=== PATIENT | female | born 1940 | race Caucasian/White ===

== ENCOUNTER 2021-11-20 14:49 | Inpatient (IN) | payer MEDICARE ==
[~2021-11-20] VITALS: Ht 149.9 cm; Wt 83.9 kg
--- NOTE | 2021-11-20 22:30 | NUR ---
Received a 81 yr old female from [facility] with admitting diagnosis of S/P L1-S1 decompression with L3-L5 fusion on 11/17/[address] Sanders. AAOx3-4 but forgetful at times. Needs attended. VSS No acute distress noted. Fall precautions maintained. Hx of Sciatica, HTN, DM, Hysterectomy, Rheumatoid arthritis, Bilateral total knee arthroplasty. Lungs CTA. Dr Yan aware of patient's admission and meds to reconcile. Patient denies any pain nor any discomfort. Incontinent of bowel and bladder. No BM noted this shift. Patient put on purewick to SD. Will monitor patient. Skin intact. Lower back incision intact, with dressing applied.
[2021-11-20] MEDS ORDERED: REMEDY ESSENTIAL ZINC PASTE 113 GM TOP PRN (22:45)
[2021-11-20 23:30] VITALS: BP 172/50
[2021-11-20] MEDS ORDERED: METH2.5T PO (23:31)
[2021-11-20] MEDS ORDERED: BUPR150T10 PO (23:31)
[2021-11-20] MEDS ORDERED: CIPR-262 PO (23:31)
[2021-11-20] MEDS ORDERED: GLIP5TAB13 PO (23:31)
[2021-11-20] MEDS ORDERED: TEMA30CA PO (23:31)
[2021-11-20] MEDS ORDERED: ALPR0.25 PO (23:31)
[2021-11-20] MEDS ORDERED: LOSA100T31 PO (23:31)
[2021-11-20] MEDS ORDERED: AMLO-212 PO (23:31)
[2021-11-20] MEDS ORDERED: ESCI20TA44 PO (23:31)
[2021-11-20] MEDS ORDERED: METO50TA16 PO (23:31)
[2021-11-20] MEDS ORDERED: CYCL5TAB PO (23:31)
[2021-11-20] MEDS ORDERED: ONDA4TAB11 PO (23:31)
[2021-11-20] MEDS ORDERED: INSU3INS6 SQ (23:31)
[2021-11-20] MEDS ORDERED: FOLI1TAB2 PO (23:31)
[2021-11-20] MEDS ORDERED: FOLI1TAB94 PO (23:31)
[2021-11-20] MEDS ORDERED: PANT40TA49 PO (23:31)
[2021-11-20] MEDS ORDERED: ARIP5TAB59 PO (23:31)
[2021-11-20] MEDS ORDERED: ACET-2154 PO (23:31)
[2021-11-20] MEDS ORDERED: HYDR-4209 PO (23:31)
[2021-11-20] MEDS ORDERED: ESTR0.5T PO (23:31)
[2021-11-20] MEDS ORDERED: ESTR-31 PO (23:31)
[2021-11-20] MEDS ORDERED: ALPR0.255 PO (23:31)
[2021-11-21 04:00] VITALS: BP 119/46
[2021-11-21] MEDS ORDERED: DEXTROSE 50% 50 ML DISP.SYRIN IV PRN (07:45)
[2021-11-21 07:54] VITALS: BP 133/47
[2021-11-21] MEDS ORDERED: ONDANSETRON ODT 4 MG TAB.RAPDIS SL PRN (08:15)
[2021-11-21] MEDS ORDERED: ACETAMINOPHEN 325 MG TABLET PO PRN (08:15)
[2021-11-21] MEDS: BLOOD SUGAR DIAGNOSTIC 1 EACH STRIP VI SCH ×4 (08:17→21:03)
[2021-11-21] MEDS: HYDROCODONE/APAP 5-325MG TABLET PO PRN ×2 (08:44→16:11)
[2021-11-21] MEDS: FOLIC ACID 1 MG TABLET PO SCH (08:44)
[2021-11-21] MEDS: ARIPIPRAZOLE 5 MG TABLET PO SCH (08:45)
[2021-11-21] MEDS: MULTIVITAMINS,THERAPEUTIC TABLET PO SCH (08:46)
[2021-11-21] MEDS: LOSARTAN POTASSIUM 50 MG TABLET PO SCH (08:46)
[2021-11-21] MEDS: CYCLOBENZAPRINE HCL 10 MG TABLET PO PRN (08:46)
[2021-11-21] MEDS: ESCITALOPRAM OXALATE 10 MG TABLET PO SCH (08:47)
[2021-11-21] MEDS: METOPROLOL TARTRATE 50 MG TABLET PO SCH ×2 (08:47→16:17)
[2021-11-21] MEDS ORDERED: glipiZIDE 5 MG TABLET PO SCH (09:00)
[2021-11-21] MEDS ORDERED: AMLODIPINE 5 MG TABLET PO SCH (09:00)
[2021-11-21] MEDS ORDERED: buPROPion SR 150 MG TABLET.SA PO SCH (09:00)
--- NOTE | 2021-11-21 09:01 | NUR ---
patient is alert, oriented x4, no sob, resp even nonlabored, skin warm and dry to touch, refused morning insulin, patient stated she would take it at lunch time, risks and benefits explained, patient verbalized understanding of it, ambulated with PT. pain is managed with pain medications. no distress noted at this time. Addendum: 11/22/21 at 0555 by ALLIE MARX RN, RN asked patient when she takes methotrexate, [facility] weak dose already, she does not want to take it until next Tuesday, pharmacy made aware Addendum: 11/24/21 at 0777 by ALLIE MARX RN, RN offered patient laxative patient refused and stated she makes BM herself, risks and benefits explained, patient verbalized understanding of it
[2021-11-21] MEDS: CIPROFLOXACIN HCL 250 MG TABLET PO SCH ×2 (09:11→16:12)
[2021-11-21] MEDS: ESTRADIOL 1 MG TABLET PO SCH (09:11)
[2021-11-21] MEDS: INSULIN REGULAR, HUMAN 300 UNIT/3 ML VIAL SQ PRN ×3 (11:59→21:00)
[2021-11-21] MEDS ORDERED: GLIP5TAB26 PO (12:32)
[2021-11-21] MEDS ORDERED: BUPR-53 PO (12:32)
[2021-11-21] MEDS ORDERED: INSU100V7 SQ (15:09)
[2021-11-21] MEDS ORDERED: ALPR0.255 PO (15:10)
[2021-11-21] MEDS ORDERED: TRAZ-257 PO (15:13)
[2021-11-21] MEDS ORDERED: TRAM50TA2 PO (15:13)
[2021-11-21] MEDS: glipiZIDE XL 5 MG TABCR PO SCH (16:11)
[2021-11-21 16:53] VITALS: BP 127/49
[2021-11-21] MEDS ORDERED: METHOTREXATE SODIUM 2.5 MG TABLET PO SCH (17:00)
[2021-11-21 20:15] VITALS: BP 115/45
[2021-11-21] MEDS: INSULIN GLARGINE,HUM 300 UNITS/3 ML CARTRIDGE SQ SCH (21:02)
[2021-11-22 04:00] VITALS: BP 135/32
--- NOTE | 2021-11-22 04:58 | NUR ---
Quiet night. VSS Slept well most of the shift. Needs attended. All meds given without difficulty. Continent of bowel and bladder. Will monitor.
[2021-11-22] MEDS ORDERED: ALPRAZOLAM 0.25 MG TABLET PO PRN (06:00)
[2021-11-22] MEDS: BLOOD SUGAR DIAGNOSTIC 1 EACH STRIP VI SCH ×4 (06:32→21:00)
[2021-11-22] MEDS: PANTOPRAZOLE SODIUM 40 MG TABLET.DR PO SCH (06:34)
[2021-11-22 08:01] VITALS: BP 119/65
[2021-11-22] MEDS: HYDROCODONE/APAP 5-325MG TABLET PO PRN ×3 (08:55→21:52)
[2021-11-22] MEDS ORDERED: DUAVEE PO SCH (09:00)
[2021-11-22] MEDS ORDERED: [UNRECOGNIZED DRUG - OTHER] PO SCH (09:00)
[2021-11-22] MEDS: glipiZIDE XL 5 MG TABCR PO SCH ×2 (09:09→16:23)
[2021-11-22] MEDS: ARIPIPRAZOLE 5 MG TABLET PO SCH (09:09)
[2021-11-22] MEDS: CIPROFLOXACIN HCL 250 MG TABLET PO SCH ×2 (09:09→16:23)
[2021-11-22] MEDS: ESTRADIOL 1 MG TABLET PO SCH (09:09)
[2021-11-22] MEDS: LOSARTAN POTASSIUM 50 MG TABLET PO SCH (09:10)
[2021-11-22] MEDS: CYCLOBENZAPRINE HCL 10 MG TABLET PO PRN (09:10)
[2021-11-22] MEDS: FOLIC ACID 1 MG TABLET PO SCH (09:11)
[2021-11-22] MEDS: ESCITALOPRAM OXALATE 10 MG TABLET PO SCH (09:12)
[2021-11-22] MEDS: MULTIVITAMINS,THERAPEUTIC TABLET PO SCH (09:13)
[2021-11-22] MEDS: METOPROLOL TARTRATE 50 MG TABLET PO SCH ×2 (09:14→16:23)
[2021-11-22] MEDS: buPROPion XL 150 MG TAB.SR.24H PO SCH (09:16)
[2021-11-22 16:03] VITALS: BP 138/42
--- NOTE | 2021-11-22 16:17 | NUR ---
BS 188 REFUSES SLIDING SCALE COVERAGE
[2021-11-22 20:00] VITALS: BP 135/63
[2021-11-22] MEDS: INSULIN GLARGINE,HUM 300 UNITS/3 ML CARTRIDGE SQ SCH (21:00)
[2021-11-22] MEDS: TEMAZEPAM 15 MG CAPSULE PO PRN (21:54)
[2021-11-22] MEDS: INSULIN REGULAR, HUMAN 300 UNIT/3 ML VIAL SQ PRN (23:25)
[2021-11-23] VITALS: BP 128/72
[2021-11-23 05:15] VITALS: BP 138/48
[2021-11-23] MEDS: PANTOPRAZOLE SODIUM 40 MG TABLET.DR PO SCH (05:58)
[2021-11-23] MEDS: BLOOD SUGAR DIAGNOSTIC 1 EACH STRIP VI SCH ×4 (06:13→20:39)
[2021-11-23 06:49] LABS: HEMATOCRIT 30.5 % (31.2-41.9); MEAN CORPUSCULAR HEMOGLOBIN 30.5 uug (24.7-32.8); PLATELET COUNT (AUTO) 268 K/uL (179-408)
--- NOTE | 2021-11-23 06:56 | NUR ---
SHIFT NOTE; RECEIVED PT ALERT AND ORIENTED X 4 PT DENIES PAIN AT START OF SHIFT AFTERWARDS AT 0344 GAVE PT ONE NORCO FOR PAIN. PT. REASSESSED AFTER WAS ASLEEP. PT POSTERIOR DRESSING CHANGED HAS DRAINAGE. PT AM BLOOD SUGAR 104 NO SIGNS OF DRAINAGE NOTED WILL CONTINUE TO MONITOR FOR SAFETY AND FALLS.
[2021-11-23 07:05] LABS: BILIRUBIN,TOTAL 0.7 mg/dL (0.2-1.0); CREATININE 1.3 mg/dL (0.6-1.3); POTASSIUM 4.1 mmol/L (3.5-5.1); TOTAL PROTEIN, SERUM 5.6 g/dL (6.4-8.2)
[2021-11-23] MEDS: HYDROCODONE/APAP 5-325MG TABLET PO PRN ×2 (08:24→17:18)
[2021-11-23] MEDS: CYCLOBENZAPRINE HCL 10 MG TABLET PO PRN (08:40)
[2021-11-23] MEDS: ESCITALOPRAM OXALATE 10 MG TABLET PO SCH (08:40)
[2021-11-23] MEDS: buPROPion XL 150 MG TAB.SR.24H PO SCH (08:40)
[2021-11-23] MEDS: MULTIVITAMINS,THERAPEUTIC TABLET PO SCH (08:40)
[2021-11-23] MEDS: ARIPIPRAZOLE 5 MG TABLET PO SCH (08:40)
[2021-11-23] MEDS: FOLIC ACID 1 MG TABLET PO SCH (08:40)
[2021-11-23] MEDS: LOSARTAN POTASSIUM 50 MG TABLET PO SCH (08:41)
[2021-11-23] MEDS: METOPROLOL TARTRATE 50 MG TABLET PO SCH ×2 (08:41→17:18)
[2021-11-23] MEDS: CIPROFLOXACIN HCL 250 MG TABLET PO SCH ×2 (08:43→17:18)
[2021-11-23] MEDS: glipiZIDE XL 5 MG TABCR PO SCH ×2 (08:43→17:19)
[2021-11-23 08:48] VITALS: BP 134/47
[2021-11-23] MEDS: ESTRADIOL 1 MG TABLET PO SCH (09:05)
--- NOTE | 2021-11-23 11:08 | NUR ---
patient refused sliding scale insulin, risks and benefits explained, patient verbalized understanding of it, and still refused.
[2021-11-23] MEDS: PROTEIN SUPPLEMENT (PROSTAT) 30 ML LIQUID PO SCH (15:20)
--- NOTE | 2021-11-23 15:52 | NUR ---
INDIVIDUALIZED PLAN OF CARE
[2021-11-23 16:15] VITALS: BP 143/45
[2021-11-23] MEDS: GLUCERNA SHAKE 237 ML CAN PO SCH (17:19)
[2021-11-23 20:00] VITALS: BP 138/38
[2021-11-23] MEDS: TRAZODONE 100 MG TABLET PO SCH (20:32)
[2021-11-23] MEDS: INSULIN GLARGINE,HUM 300 UNITS/3 ML CARTRIDGE SQ SCH (20:39)
[2021-11-23] MEDS: INSULIN REGULAR, HUMAN 300 UNIT/3 ML VIAL SQ PRN (20:40)
[2021-11-23] MEDS: MIRALAX 17 GM POWD.PACK PO SCH (21:12)
--- NOTE | 2021-11-23 22:27 | NUR ---
back incision site assessed, noted with mild to moderate serous drainage, no malodorous noted, dressing changed, continue to monitor
[2021-11-24 00:13] LABS: *BILIRUBIN,URIN NEGATIVE (NEGATIVE); *BLOOD, URINE 1+ (NEGATIVE); *CLARITY,URINE CLEAR (CLEAR); *COLOR,URINE YELLOW (YELLOW); *KETONES,URINE NEGATIVE (NEGATIVE); *UROBILINOGEN,URINE 0.2 E.U./dl (NORMAL); LEUKOCYTE ESTERASE ,URINE 3+ (NEGATIVE); NITRITE, URINE NEGATIVE (NEGATIVE); PH,URINE 5.5 (5.0-8.0); UGLUCOSE NEGATIVE (NEGATIVE)
[2021-11-24 00:15] LABS: BACTERIA,URINE FEW /HPF (NONE SEEN); RBC,URINE 0-3 /HPF (0-3); SQUAMOUS EPITHELIAL CELL,UR FEW /HPF (NONE SEEN); WBC,URINE TNTC /HPF (0-3)
[2021-11-24] MEDS: HYDROCODONE/APAP 5-325MG TABLET PO PRN ×4 (00:30→17:06)
[2021-11-24 04:00] VITALS: BP 119/34
[2021-11-24] MEDS: PANTOPRAZOLE SODIUM 40 MG TABLET.DR PO SCH (06:33)
[2021-11-24] MEDS: BLOOD SUGAR DIAGNOSTIC 1 EACH STRIP VI SCH ×4 (06:34→20:32)
--- NOTE | 2021-11-24 06:41 | NUR ---
no events noted overnight, slept well
--- NOTE | 2021-11-24 08:00 | NUR ---
resting in bed, states pain better, back dsg in place, noted pinkish drainage on dsg on the distal end, readied for breakfast, safety measures maintained
[2021-11-24] MEDS: LOSARTAN POTASSIUM 50 MG TABLET PO SCH (09:00)
[2021-11-24] MEDS: CYCLOBENZAPRINE HCL 10 MG TABLET PO PRN (09:15)
[2021-11-24] MEDS: ESCITALOPRAM OXALATE 10 MG TABLET PO SCH (09:15)
[2021-11-24] MEDS: buPROPion XL 150 MG TAB.SR.24H PO SCH (09:16)
[2021-11-24] MEDS: GLUCERNA SHAKE 237 ML CAN PO SCH ×2 (09:17→17:07)
[2021-11-24] MEDS: FOLIC ACID 1 MG TABLET PO SCH (09:17)
[2021-11-24] MEDS: ARIPIPRAZOLE 5 MG TABLET PO SCH (09:17)
[2021-11-24] MEDS: PROTEIN SUPPLEMENT (PROSTAT) 30 ML LIQUID PO SCH (09:17)
[2021-11-24] MEDS: MIRALAX 17 GM POWD.PACK PO SCH (09:18)
[2021-11-24] MEDS: MULTIVITAMINS,THERAPEUTIC TABLET PO SCH (09:18)
[2021-11-24] MEDS: ESTRADIOL 1 MG TABLET PO SCH (09:22)
[2021-11-24] MEDS: CIPROFLOXACIN HCL 250 MG TABLET PO SCH ×2 (09:22→17:05)
[2021-11-24] MEDS: METHOTREXATE SODIUM 2.5 MG TABLET PO SCH (09:22)
[2021-11-24] MEDS: glipiZIDE XL 5 MG TABCR PO SCH ×2 (09:23→17:06)
[2021-11-24] MEDS: METOPROLOL TARTRATE 50 MG TABLET PO SCH ×2 (09:24→17:00)
[2021-11-24 10:55] VITALS: BP 127/34
[2021-11-24] MEDS: INSULIN REGULAR, HUMAN 300 UNIT/3 ML VIAL SQ PRN ×2 (12:08→20:31)
--- NOTE | 2021-11-24 12:33 | NUR ---
WOUND CARE CONSULT: PT PRESENTS WITH DRY/INTACT BACK DRESSING WITH SLIGHT PINK SHADOW NOTED. RECOMMEND SURGICAL FOLLOW UP. DISCUSSED WITH NURSING STAFF. PT IS INDEPENDENT WITH BED MOBILITY AND IS CONTINENT. WILL SEE PRN.
[2021-11-24 16:05] VITALS: BP 124/29
--- NOTE | 2021-11-24 18:08 | NUR ---
no distress noted, medicated with [place] x 2 for pain back pain this shift with relief, voiding qs to BR with back brace, back dressing changed this shift, some serosanguineous drainage noted on old dsg, has appt for Dr Tommy jeffers at 1300-pt informed, all needs attended and met, call light within reach
--- NOTE | 2021-11-24 19:00 | NUR ---
reported UA results to Dr Quezada- no orders given, pt is on Cipro 500mg bid since the tenth
[2021-11-24 20:00] VITALS: BP 130/43
[2021-11-24] MEDS: TRAZODONE 100 MG TABLET PO SCH (20:23)
[2021-11-24] MEDS: INSULIN GLARGINE,HUM 300 UNITS/3 ML CARTRIDGE SQ SCH (20:31)
[2021-11-24] MEDS: TEMAZEPAM 15 MG CAPSULE PO PRN (22:11)
[2021-11-25 04:00] VITALS: BP 129/48
--- NOTE | 2021-11-25 04:36 | NUR ---
Quiet night. AAOx3-4 forgetful at times. VSS Needs attended. Fall precautions maintained. Lower back incision with lucero intact dressing applied has some leakage noted. Will monitor patient. Patient has appointment today with Dr Sanders. Denies any pain nor any discomfort.
[2021-11-25] MEDS: PANTOPRAZOLE SODIUM 40 MG TABLET.DR PO SCH (06:30)
[2021-11-25] MEDS: BLOOD SUGAR DIAGNOSTIC 1 EACH STRIP VI SCH ×4 (06:31→20:56)
[2021-11-25] MEDS: HYDROCODONE/APAP 5-325MG TABLET PO PRN ×3 (07:57→20:49)
--- NOTE | 2021-11-25 08:00 | NUR ---
awake alert and oriented, medicated for back pain , back dsg dry and intact, PT after breakfast, safety measures maintained, call light within reach, forgetful at times
[2021-11-25 08:04] VITALS: BP 117/49
[2021-11-25] MEDS: GLUCERNA SHAKE 237 ML CAN PO SCH ×2 (08:16→17:14)
[2021-11-25] MEDS: PROTEIN SUPPLEMENT (PROSTAT) 30 ML LIQUID PO SCH (08:17)
[2021-11-25] MEDS: buPROPion XL 150 MG TAB.SR.24H PO SCH (08:18)
[2021-11-25] MEDS: CIPROFLOXACIN HCL 250 MG TABLET PO SCH ×2 (08:19→17:14)
[2021-11-25] MEDS: METOPROLOL TARTRATE 50 MG TABLET PO SCH ×2 (08:19→17:00)
[2021-11-25] MEDS: MULTIVITAMINS,THERAPEUTIC TABLET PO SCH (08:19)
[2021-11-25] MEDS: FOLIC ACID 1 MG TABLET PO SCH (08:19)
[2021-11-25] MEDS: ESCITALOPRAM OXALATE 10 MG TABLET PO SCH (08:19)
[2021-11-25] MEDS: LOSARTAN POTASSIUM 50 MG TABLET PO SCH (08:20)
[2021-11-25] MEDS: ESTRADIOL 1 MG TABLET PO SCH (08:20)
[2021-11-25] MEDS: glipiZIDE XL 5 MG TABCR PO SCH ×2 (08:20→17:14)
[2021-11-25] MEDS: MIRALAX 17 GM POWD.PACK PO SCH (08:21)
[2021-11-25] MEDS: ARIPIPRAZOLE 5 MG TABLET PO SCH (08:31)
[2021-11-25] MEDS: INSULIN REGULAR, HUMAN 300 UNIT/3 ML VIAL SQ PRN ×3 (12:10→20:59)
--- NOTE | 2021-11-25 12:50 | NUR ---
taken per julius in stable condition for appointment with Dr Sanders
--- NOTE | 2021-11-25 13:00 | NUR ---
INTERDISCIPLINARY TEAM CONFERENCE
--- NOTE | 2021-11-25 14:00 | NUR ---
back from Dr Sanders's clinic, pt in stable condition, female visitor at bedside
[2021-11-25] MEDS: CYCLOBENZAPRINE HCL 10 MG TABLET PO PRN (14:51)
--- NOTE | 2021-11-25 14:58 | NUR ---
medicated with flexeril 10mg po as ordered prn for muscle spasm
[2021-11-25 15:45] VITALS: BP 134/49
--- NOTE | 2021-11-25 18:13 | NUR ---
resting in bed, no distress noted, all needs attended and met, safety measures in place
[2021-11-25 20:00] VITALS: BP 120/47
--- NOTE | 2021-11-25 20:00 | NUR ---
Patient received in bed, AAOX3, no sob, no c/o pain noted, call light wit in easy reach,
[2021-11-25] MEDS: TRAZODONE 100 MG TABLET PO SCH (20:26)
[2021-11-25] MEDS: TEMAZEPAM 15 MG CAPSULE PO PRN (20:27)
[2021-11-25] MEDS: INSULIN GLARGINE,HUM 300 UNITS/3 ML CARTRIDGE SQ SCH (21:01)
--- NOTE | 2021-11-26 01:00 | NUR ---
Pt with a visitor at bedside having lunch. Asked for pain med before PT.
[2021-11-26] MEDS: HYDROCODONE/APAP 5-325MG TABLET PO PRN ×3 (03:56→14:41)
[2021-11-26] MEDS: PANTOPRAZOLE SODIUM 40 MG TABLET.DR PO SCH (06:30)
[2021-11-26] MEDS: INSULIN REGULAR, HUMAN 300 UNIT/3 ML VIAL SQ PRN ×3 (06:34→16:50)
[2021-11-26] MEDS: BLOOD SUGAR DIAGNOSTIC 1 EACH STRIP VI SCH ×4 (06:34→20:11)
[2021-11-26 07:38] VITALS: BP 114/45
[2021-11-26] MEDS: MIRALAX 17 GM POWD.PACK PO SCH (08:28)
[2021-11-26] MEDS: ESTRADIOL 1 MG TABLET PO SCH (08:28)
[2021-11-26] MEDS: glipiZIDE XL 5 MG TABCR PO SCH ×2 (08:29→16:41)
[2021-11-26] MEDS: FOLIC ACID 1 MG TABLET PO SCH (08:29)
[2021-11-26] MEDS: buPROPion XL 150 MG TAB.SR.24H PO SCH (08:29)
[2021-11-26] MEDS: CIPROFLOXACIN HCL 250 MG TABLET PO SCH (08:29)
[2021-11-26] MEDS: ESCITALOPRAM OXALATE 10 MG TABLET PO SCH (08:29)
[2021-11-26] MEDS: MULTIVITAMINS,THERAPEUTIC TABLET PO SCH (08:29)
[2021-11-26] MEDS: ARIPIPRAZOLE 5 MG TABLET PO SCH (08:29)
[2021-11-26] MEDS: CYCLOBENZAPRINE HCL 10 MG TABLET PO PRN (08:29)
[2021-11-26] MEDS: METOPROLOL TARTRATE 50 MG TABLET PO SCH ×2 (08:37→16:49)
[2021-11-26] MEDS: LOSARTAN POTASSIUM 50 MG TABLET PO SCH (08:37)
[2021-11-26] MEDS: PROTEIN SUPPLEMENT (PROSTAT) 30 ML LIQUID PO SCH (08:38)
[2021-11-26] MEDS: GLUCERNA SHAKE 237 ML CAN PO SCH ×2 (08:38→17:29)
[2021-11-26 15:20] VITALS: BP 155/58
--- NOTE | 2021-11-26 16:20 | NUR ---
Patient resting in bed with at bedside, verbalized no pain. No distress noted.
[2021-11-26 20:04] VITALS: BP 103/32
[2021-11-26] MEDS: INSULIN GLARGINE,HUM 300 UNITS/3 ML CARTRIDGE SQ SCH (20:15)
[2021-11-26] MEDS: TRAZODONE 100 MG TABLET PO SCH (20:43)
[2021-11-26] MEDS: TEMAZEPAM 15 MG CAPSULE PO PRN (20:43)
--- NOTE | 2021-11-26 21:13 | NUR ---
Patient in bed at this time, awake, AAOX3, no sob, no c/o pain noted,
[2021-11-27] MEDS: INSULIN REGULAR, HUMAN 300 UNIT/3 ML VIAL SQ PRN ×3 (02:58→21:32)
[2021-11-27 04:19] VITALS: BP 142/43
[2021-11-27] MEDS: PANTOPRAZOLE SODIUM 40 MG TABLET.DR PO SCH (06:33)
[2021-11-27] MEDS: BLOOD SUGAR DIAGNOSTIC 1 EACH STRIP VI SCH ×4 (06:33→21:24)
[2021-11-27 07:25] VITALS: BP 126/48
[2021-11-27] MEDS: GLUCERNA SHAKE 237 ML CAN PO SCH ×2 (08:00→17:05)
[2021-11-27] MEDS: LOSARTAN POTASSIUM 50 MG TABLET PO SCH (09:00)
[2021-11-27] MEDS: glipiZIDE XL 5 MG TABCR PO SCH ×2 (09:40→17:08)
[2021-11-27] MEDS: MULTIVITAMINS,THERAPEUTIC TABLET PO SCH (09:40)
[2021-11-27] MEDS: MIRALAX 17 GM POWD.PACK PO SCH (09:40)
[2021-11-27] MEDS: FOLIC ACID 1 MG TABLET PO SCH (09:41)
[2021-11-27] MEDS: ARIPIPRAZOLE 5 MG TABLET PO SCH (09:41)
[2021-11-27] MEDS: ESTRADIOL 1 MG TABLET PO SCH (09:41)
[2021-11-27] MEDS: ESCITALOPRAM OXALATE 10 MG TABLET PO SCH (09:41)
[2021-11-27] MEDS: CYCLOBENZAPRINE HCL 10 MG TABLET PO PRN ×2 (09:41→16:58)
[2021-11-27] MEDS: PROTEIN SUPPLEMENT (PROSTAT) 30 ML LIQUID PO SCH (09:47)
[2021-11-27] MEDS: buPROPion XL 150 MG TAB.SR.24H PO SCH (09:52)
[2021-11-27] MEDS: HYDROCODONE/APAP 5-325MG TABLET PO PRN ×2 (09:53→16:58)
[2021-11-27] MEDS: METOPROLOL TARTRATE 50 MG TABLET PO SCH ×2 (10:26→17:04)
[2021-11-27 15:06] VITALS: BP 138/45
--- NOTE | 2021-11-27 15:41 | NUR ---
Pt in bed awake. She is alert and oriented x3-4. She did complain of leg pain 7/ [place] given @10am. pt is calm and relaxed at this time. She is breathing normal on room air with saturation 96%. No symptoms of acute distress noted. Blood sugar taken around 1230Pm, 113 no insulin needed. Pt is continent of bowel and bladder. No BM noted.
[2021-11-27 20:41] VITALS: BP 107/45
[2021-11-27] MEDS: INSULIN GLARGINE,HUM 300 UNITS/3 ML CARTRIDGE SQ SCH (21:32)
[2021-11-27] MEDS: TRAZODONE 100 MG TABLET PO SCH (21:34)
[2021-11-28] MEDS: HYDROCODONE/APAP 5-325MG TABLET PO PRN ×2 (03:09→22:55)
[2021-11-28 04:33] VITALS: BP 134/46
[2021-11-28] MEDS: PANTOPRAZOLE SODIUM 40 MG TABLET.DR PO SCH (07:00)
[2021-11-28] MEDS: BLOOD SUGAR DIAGNOSTIC 1 EACH STRIP VI SCH ×4 (07:20→21:19)
[2021-11-28 07:28] VITALS: BP 141/49
[2021-11-28] MEDS: PROTEIN SUPPLEMENT (PROSTAT) 30 ML LIQUID PO SCH (09:32)
[2021-11-28] MEDS: GLUCERNA SHAKE 237 ML CAN PO SCH ×2 (09:32→16:14)
[2021-11-28] MEDS: buPROPion XL 150 MG TAB.SR.24H PO SCH (09:33)
[2021-11-28] MEDS: ESCITALOPRAM OXALATE 10 MG TABLET PO SCH (09:34)
[2021-11-28] MEDS: ESTRADIOL 1 MG TABLET PO SCH (09:34)
[2021-11-28] MEDS: MIRALAX 17 GM POWD.PACK PO SCH (09:34)
[2021-11-28] MEDS: CYCLOBENZAPRINE HCL 10 MG TABLET PO PRN (09:34)
[2021-11-28] MEDS: LOSARTAN POTASSIUM 50 MG TABLET PO SCH (09:34)
[2021-11-28] MEDS: glipiZIDE XL 5 MG TABCR PO SCH ×2 (09:35→16:34)
[2021-11-28] MEDS: FOLIC ACID 1 MG TABLET PO SCH (09:35)
[2021-11-28] MEDS: ARIPIPRAZOLE 5 MG TABLET PO SCH (09:35)
[2021-11-28] MEDS: METOPROLOL TARTRATE 50 MG TABLET PO SCH ×2 (09:36→16:34)
[2021-11-28] MEDS: MULTIVITAMINS,THERAPEUTIC TABLET PO SCH (09:36)
[2021-11-28 15:13] VITALS: BP 145/48
--- NOTE | 2021-11-28 16:39 | NUR ---
dinner accuchek 175 refused sliding scale coverage
[2021-11-28] MEDS: NUTRISOURCE FIBER 4 GM PACKET PO SCH (16:43)
[2021-11-28] MEDS: TRAZODONE 100 MG TABLET PO SCH (20:10)
[2021-11-28] MEDS: TEMAZEPAM 15 MG CAPSULE PO PRN (20:12)
[2021-11-28 20:43] VITALS: BP 144/51
[2021-11-28] MEDS: INSULIN GLARGINE,HUM 300 UNITS/3 ML CARTRIDGE SQ SCH (21:19)
[2021-11-28] MEDS: INSULIN REGULAR, HUMAN 300 UNIT/3 ML VIAL SQ PRN (21:39)
[2021-11-29 04:19] VITALS: BP 148/58
[2021-11-29] MEDS: BLOOD SUGAR DIAGNOSTIC 1 EACH STRIP VI SCH ×4 (06:38→20:38)
[2021-11-29] MEDS: PANTOPRAZOLE SODIUM 40 MG TABLET.DR PO SCH (06:38)
[2021-11-29 07:31] VITALS: BP 140/49
[2021-11-29] MEDS ORDERED: NUTRISOURCE FIBER 4 GM PACKET PO SCH (09:00)
[2021-11-29] MEDS: MIRALAX 17 GM POWD.PACK PO SCH (09:54)
[2021-11-29] MEDS: buPROPion XL 150 MG TAB.SR.24H PO SCH (09:54)
[2021-11-29] MEDS: LOSARTAN POTASSIUM 50 MG TABLET PO SCH (09:54)
[2021-11-29] MEDS: glipiZIDE XL 5 MG TABCR PO SCH ×2 (09:55→16:26)
[2021-11-29] MEDS: ARIPIPRAZOLE 5 MG TABLET PO SCH (09:55)
[2021-11-29] MEDS: ESCITALOPRAM OXALATE 10 MG TABLET PO SCH (09:55)
[2021-11-29] MEDS: ESTRADIOL 1 MG TABLET PO SCH (09:55)
[2021-11-29] MEDS: MULTIVITAMINS,THERAPEUTIC TABLET PO SCH (09:55)
[2021-11-29] MEDS: GLUCERNA SHAKE 237 ML CAN PO SCH (09:56)
[2021-11-29] MEDS: FOLIC ACID 1 MG TABLET PO SCH (09:56)
[2021-11-29] MEDS: METOPROLOL TARTRATE 50 MG TABLET PO SCH ×2 (09:57→16:26)
[2021-11-29] MEDS: NUTRISOURCE FIBER 4 GM PACKET PO SCH ×3 (09:57→16:37)
[2021-11-29 15:36] VITALS: BP 132/48
[2021-11-29 20:00] VITALS: BP 139/55
[2021-11-29] MEDS: INSULIN REGULAR, HUMAN 300 UNIT/3 ML VIAL SQ PRN (20:09)
[2021-11-29] MEDS: INSULIN GLARGINE,HUM 300 UNITS/3 ML CARTRIDGE SQ SCH (20:26)
[2021-11-29] MEDS: TRAZODONE 100 MG TABLET PO SCH (20:37)
[2021-11-29] MEDS: TEMAZEPAM 15 MG CAPSULE PO PRN (20:37)
--- NOTE | 2021-11-29 21:32 | NUR ---
Patient received in bed, no sob, no c/o pain noted, call light within easy reach
[2021-11-30 04:00] VITALS: BP 128/60
[2021-11-30] MEDS: PANTOPRAZOLE SODIUM 40 MG TABLET.DR PO SCH (06:33)
[2021-11-30] MEDS: BLOOD SUGAR DIAGNOSTIC 1 EACH STRIP VI SCH ×4 (06:33→20:34)
[2021-11-30 08:00] VITALS: BP 133/52
[2021-11-30] MEDS: ARIPIPRAZOLE 5 MG TABLET PO SCH (08:26)
[2021-11-30] MEDS: FOLIC ACID 1 MG TABLET PO SCH (08:26)
[2021-11-30] MEDS: MULTIVITAMINS,THERAPEUTIC TABLET PO SCH (08:27)
[2021-11-30] MEDS: ESCITALOPRAM OXALATE 10 MG TABLET PO SCH (08:27)
[2021-11-30] MEDS: CYCLOBENZAPRINE HCL 10 MG TABLET PO PRN ×2 (08:27→16:38)
[2021-11-30] MEDS: METOPROLOL TARTRATE 50 MG TABLET PO SCH ×2 (08:28→16:43)
[2021-11-30] MEDS: LOSARTAN POTASSIUM 50 MG TABLET PO SCH (08:29)
[2021-11-30] MEDS: MIRALAX 17 GM POWD.PACK PO SCH (08:30)
[2021-11-30] MEDS: ESTRADIOL 1 MG TABLET PO SCH (08:37)
[2021-11-30] MEDS: glipiZIDE XL 5 MG TABCR PO SCH ×2 (08:37→17:24)
[2021-11-30] MEDS: buPROPion XL 150 MG TAB.SR.24H PO SCH (08:38)
[2021-11-30] MEDS: GLUCERNA SHAKE 237 ML CAN PO SCH (08:40)
[2021-11-30] MEDS: NUTRISOURCE FIBER 4 GM PACKET PO SCH ×3 (08:41→17:24)
[2021-11-30] MEDS: HYDROCODONE/APAP 5-325MG TABLET PO PRN (09:42)
[2021-11-30 12:00] VITALS: BP 131/25
[2021-11-30 12:16] VITALS: BP 131/65
[2021-11-30 15:57] VITALS: BP 109/46
--- NOTE | 2021-11-30 18:26 | NUR ---
Received patient in bed awake. She is alert and oriented x4. She is breathing normal on room air. She is able to move herself/ with assist. Back lucero dressing changed. Acu-check done at 1230 122 w/no coverage and 87 at 1630 w/no coverage. Patient has no IV. Last recorded BM was today 11/30/21.[place] given for pain with effective relief. She is left resting comfortably in bed. Will continue to monitor.
[2021-11-30 20:00] VITALS: BP 124/40
[2021-11-30] MEDS: TRAZODONE 100 MG TABLET PO SCH (20:31)
[2021-11-30] MEDS: INSULIN GLARGINE,HUM 300 UNITS/3 ML CARTRIDGE SQ SCH (20:37)
[2021-11-30] MEDS: INSULIN REGULAR, HUMAN 300 UNIT/3 ML VIAL SQ PRN (20:38)
[2021-12-01 04:00] VITALS: BP 104/45
[2021-12-01] MEDS: PANTOPRAZOLE SODIUM 40 MG TABLET.DR PO SCH (05:40)
[2021-12-01] MEDS: BLOOD SUGAR DIAGNOSTIC 1 EACH STRIP VI SCH ×4 (05:47→20:13)
--- NOTE | 2021-12-01 05:48 | NUR ---
FBS 65mg/dl. Denies any s/s of hypoglycemia. Provided patient a cup of orange juice.Will recheck.
--- NOTE | 2021-12-01 06:31 | NUR ---
Shift End Report: VS stable. Slept good. All needs attended and anticipated. No significant event reported all night. Safety measures and fall prevention maintained. Continue current rehab plan of care.
--- NOTE | 2021-12-01 07:02 | NUR ---
Blood sugar rechecked 96mg/dl. Will endorsed accordingly.
--- NOTE | 2021-12-01 07:24 | NUR ---
Rec'd in bed, awake, A/Ox4, no respiratory distress on R/A, verbalizes needs and follows directions. No C/O pain. Call light at reach, safety measures in place.
[2021-12-01 07:35] VITALS: BP 138/46
[2021-12-01] MEDS: buPROPion XL 150 MG TAB.SR.24H PO SCH (08:49)
[2021-12-01] MEDS: HYDROCODONE/APAP 5-325MG TABLET PO PRN (08:49)
[2021-12-01] MEDS: MULTIVITAMINS,THERAPEUTIC TABLET PO SCH (08:50)
[2021-12-01] MEDS: LOSARTAN POTASSIUM 50 MG TABLET PO SCH (08:50)
[2021-12-01] MEDS: ESCITALOPRAM OXALATE 10 MG TABLET PO SCH (08:50)
[2021-12-01] MEDS: METOPROLOL TARTRATE 50 MG TABLET PO SCH ×2 (08:50→17:25)
[2021-12-01] MEDS: CYCLOBENZAPRINE HCL 10 MG TABLET PO PRN (08:50)
[2021-12-01] MEDS: ESTRADIOL 1 MG TABLET PO SCH (08:55)
[2021-12-01] MEDS: glipiZIDE XL 5 MG TABCR PO SCH ×2 (08:56→17:25)
[2021-12-01] MEDS: METHOTREXATE SODIUM 2.5 MG TABLET PO SCH (08:58)
[2021-12-01] MEDS: MIRALAX 17 GM POWD.PACK PO SCH (08:59)
[2021-12-01] MEDS: NUTRISOURCE FIBER 4 GM PACKET PO SCH ×3 (08:59→17:26)
[2021-12-01] MEDS: FOLIC ACID 1 MG TABLET PO SCH (09:56)
[2021-12-01] MEDS: GLUCERNA SHAKE 237 ML CAN PO SCH (09:57)
[2021-12-01] MEDS: ARIPIPRAZOLE 5 MG TABLET PO SCH (10:01)
[2021-12-01] MEDS: INSULIN REGULAR, HUMAN 300 UNIT/3 ML VIAL SQ PRN ×2 (11:29→20:17)
[2021-12-01 12:00] VITALS: BP 139/45
--- NOTE | 2021-12-01 12:42 | NUR ---
Patient in room, resting in bed. Awake, denies pain. Oral fluids taken well, meals nav. well. No C/O GI discomfort. Assisted with ADLS. Rec'd therapy this AM and had a shower, patient states to feel well.
--- NOTE | 2021-12-01 15:34 | NUR ---
Patient eating and drinking fluids well, no C/O GI distress, continent of both & with BRP, requires of one person assist during ambulation & uses FWW. No c/o constipation, patient had a large soft formed BM today, and denies straining during BM. Patient continues under rehab for PT/OT skilled services as ordered, patient able to actively participate in therapy and nav. well. Rehab staff provided a shower to patient this morning and tolerated well.
--- NOTE | 2021-12-01 15:42 | NUR ---
Patient discharged home, medication list and education provided. 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 Patient was discharged safely, denies any pain. Appears calm as exiting building. Patient A/Ox4, stable within her baseline. Addendum: 12/04/21 at 1014 by ROYA CABELLO RN clinician error-incorrect patient.
[2021-12-01 16:00] VITALS: BP 139/51
[2021-12-01 20:00] VITALS: BP 138/43
[2021-12-01] MEDS: TRAZODONE 100 MG TABLET PO SCH (20:10)
[2021-12-01] MEDS: INSULIN GLARGINE,HUM 300 UNITS/3 ML CARTRIDGE SQ SCH (20:14)
[2021-12-02] MEDS: OXYCODONE/APAP 5-325 MG TABLET PO PRN (03:55)
[2021-12-02] MEDS: PANTOPRAZOLE SODIUM 40 MG TABLET.DR PO SCH (06:01)
[2021-12-02] MEDS: BLOOD SUGAR DIAGNOSTIC 1 EACH STRIP VI SCH ×4 (06:01→20:09)
--- NOTE | 2021-12-02 06:03 | NUR ---
Blood sugar down to 64mg/dl. Denies any s/s of hypoglycemia. Luce juice provided.will recheck later.
--- NOTE | 2021-12-02 06:19 | NUR ---
Shift End Report: Medicated once for pain with relief. No further complaint presented. All needs attended and met. No significant event reported all night. Safety measures and fall prevention maintained. Lumbar incision intact and no s/s of infection. Continue current rehab plan of care.
[2021-12-02 08:00] VITALS: BP 138/52
[2021-12-02] MEDS: ESCITALOPRAM OXALATE 10 MG TABLET PO SCH (08:41)
[2021-12-02] MEDS: MULTIVITAMINS,THERAPEUTIC TABLET PO SCH (08:42)
[2021-12-02] MEDS: FOLIC ACID 1 MG TABLET PO SCH (08:42)
[2021-12-02] MEDS: CYCLOBENZAPRINE HCL 10 MG TABLET PO PRN (08:42)
[2021-12-02] MEDS: buPROPion XL 150 MG TAB.SR.24H PO SCH (08:42)
[2021-12-02] MEDS: METOPROLOL TARTRATE 50 MG TABLET PO SCH ×2 (08:42→17:21)
[2021-12-02] MEDS: LOSARTAN POTASSIUM 50 MG TABLET PO SCH (08:42)
[2021-12-02] MEDS: glipiZIDE XL 5 MG TABCR PO SCH ×2 (09:19→17:21)
[2021-12-02] MEDS: METHOTREXATE SODIUM 2.5 MG TABLET PO SCH (09:21)
[2021-12-02] MEDS: ARIPIPRAZOLE 5 MG TABLET PO SCH (09:35)
[2021-12-02] MEDS: MIRALAX 17 GM POWD.PACK PO SCH (09:35)
[2021-12-02] MEDS: NUTRISOURCE FIBER 4 GM PACKET PO SCH ×3 (09:35→17:22)
[2021-12-02] MEDS: GLUCERNA SHAKE 237 ML CAN PO SCH (09:36)
[2021-12-02] MEDS: ESTRADIOL 1 MG TABLET PO SCH (09:42)
[2021-12-02 11:38] VITALS: BP 118/44
--- NOTE | 2021-12-02 14:16 | NUR ---
INTERDISCIPLINARY TEAM CONFERENCE
--- NOTE | 2021-12-02 15:39 | NUR ---
INTERDISCIPLINARY TEAM CONFERENCE
[2021-12-02 15:55] VITALS: BP 124/46
--- NOTE | 2021-12-02 18:45 | NUR ---
1830-SURGICAL SITE AT THE LOWER BACK DRESSING CHANGE, NO BLEEDING NOTED, SITE INTACT WITH NO REDNESS OR SWELLING, PATIENT DENIES ANY PAIN.
[2021-12-02 19:50] VITALS: BP 136/45
[2021-12-02] MEDS: TRAZODONE 100 MG TABLET PO SCH (20:04)
[2021-12-02] MEDS: INSULIN GLARGINE,HUM 300 UNITS/3 ML CARTRIDGE SQ SCH (20:11)
[2021-12-03 04:22] VITALS: BP 121/85
[2021-12-03] MEDS: OXYCODONE/APAP 5-325 MG TABLET PO PRN (05:05)
[2021-12-03] MEDS: PANTOPRAZOLE SODIUM 40 MG TABLET.DR PO SCH (06:12)
[2021-12-03] MEDS: BLOOD SUGAR DIAGNOSTIC 1 EACH STRIP VI SCH ×3 (06:12→16:58)
[2021-12-03 07:56] VITALS: BP 113/50
[2021-12-03] MEDS: FOLIC ACID 1 MG TABLET PO SCH (08:35)
[2021-12-03] MEDS: LOSARTAN POTASSIUM 50 MG TABLET PO SCH (08:35)
[2021-12-03] MEDS: CYCLOBENZAPRINE HCL 10 MG TABLET PO PRN (08:35)
[2021-12-03] MEDS: METOPROLOL TARTRATE 50 MG TABLET PO SCH ×2 (08:35→17:08)
[2021-12-03] MEDS: buPROPion XL 150 MG TAB.SR.24H PO SCH (08:36)
[2021-12-03] MEDS: MULTIVITAMINS,THERAPEUTIC TABLET PO SCH (08:36)
[2021-12-03] MEDS: ARIPIPRAZOLE 5 MG TABLET PO SCH (08:36)
[2021-12-03] MEDS: ESCITALOPRAM OXALATE 10 MG TABLET PO SCH (08:36)
[2021-12-03] MEDS: glipiZIDE XL 5 MG TABCR PO SCH ×2 (08:43→17:07)
[2021-12-03] MEDS: ESTRADIOL 1 MG TABLET PO SCH (08:44)
[2021-12-03] MEDS: MIRALAX 17 GM POWD.PACK PO SCH (09:07)
[2021-12-03] MEDS: NUTRISOURCE FIBER 4 GM PACKET PO SCH ×3 (09:08→17:09)
[2021-12-03] MEDS: GLUCERNA SHAKE 237 ML CAN PO SCH (09:17)
[2021-12-03 15:52] VITALS: BP 143/50
[2021-12-03] MEDS: HYDROCODONE/APAP 5-325MG TABLET PO PRN ×2 (17:56→18:57)
--- NOTE | 2021-12-03 19:15 | NUR ---
Patient in bed, resting, appears asleep, no respiratory distress noted. Call light at reach. All needs attended well and met.
[2021-12-03 20:30] VITALS: BP 146/86
[2021-12-03] MEDS: TRAZODONE 100 MG TABLET PO SCH (21:03)
[2021-12-04 04:10] VITALS: BP 156/42
[2021-12-04] MEDS: HYDROCODONE/APAP 5-325MG TABLET PO PRN (05:01)
[2021-12-04] MEDS: PANTOPRAZOLE SODIUM 40 MG TABLET.DR PO SCH (06:17)
[2021-12-04 07:38] VITALS: BP 142/43
[2021-12-04] MEDS: LOSARTAN POTASSIUM 50 MG TABLET PO SCH (09:00)
[2021-12-04] MEDS: MULTIVITAMINS,THERAPEUTIC TABLET PO SCH (09:00)
[2021-12-04] MEDS: buPROPion XL 150 MG TAB.SR.24H PO SCH (09:03)
[2021-12-04] MEDS: ARIPIPRAZOLE 5 MG TABLET PO SCH (09:03)
[2021-12-04] MEDS: ESCITALOPRAM OXALATE 10 MG TABLET PO SCH (09:03)
[2021-12-04] MEDS: FOLIC ACID 1 MG TABLET PO SCH (09:03)
[2021-12-04] MEDS: CYCLOBENZAPRINE HCL 10 MG TABLET PO PRN ×2 (09:03→18:04)
[2021-12-04] MEDS: MIRALAX 17 GM POWD.PACK PO SCH (09:04)
[2021-12-04] MEDS: glipiZIDE XL 5 MG TABCR PO SCH ×2 (09:04→18:04)
[2021-12-04] MEDS: ESTRADIOL 1 MG TABLET PO SCH (09:05)
[2021-12-04] MEDS: GLUCERNA SHAKE 237 ML CAN PO SCH (09:05)
[2021-12-04] MEDS: NUTRISOURCE FIBER 4 GM PACKET PO SCH ×3 (09:12→18:05)
[2021-12-04] MEDS: METOPROLOL TARTRATE 50 MG TABLET PO SCH ×2 (09:12→18:04)
[2021-12-04 15:35] VITALS: BP 148/89
--- NOTE | 2021-12-04 18:40 | NUR ---
Pt is alert and orient x4. Breathing on room air. No s/s of pain nor acute distress noted. Held Losartan Potassium due to low diastolic pressure. She is comfortable at this time.
[2021-12-04 20:39] VITALS: BP 162/46
[2021-12-04] MEDS: TRAZODONE 100 MG TABLET PO SCH (22:49)
[2021-12-05] VITALS: BP 132/40
[2021-12-05] MEDS: OXYCODONE/APAP 5-325 MG TABLET PO PRN (03:33)
[2021-12-05 04:42] VITALS: BP 147/51
[2021-12-05] MEDS: PANTOPRAZOLE SODIUM 40 MG TABLET.DR PO SCH (06:01)
[2021-12-05 07:30] VITALS: BP 148/57
--- NOTE | 2021-12-05 07:55 | NUR ---
received pt on bed eating bfast; no pain complain; no sob noted; pt will be discharge today per cm
[2021-12-05] MEDS: METOPROLOL TARTRATE 50 MG TABLET PO SCH (09:00)
[2021-12-05 09:13] VITALS: BP 148/57
[2021-12-05] MEDS: LOSARTAN POTASSIUM 50 MG TABLET PO SCH (09:13)
[2021-12-05] MEDS: buPROPion XL 150 MG TAB.SR.24H PO SCH (09:14)
[2021-12-05] MEDS: NUTRISOURCE FIBER 4 GM PACKET PO SCH ×2 (09:14→13:19)
[2021-12-05] MEDS: MIRALAX 17 GM POWD.PACK PO SCH (09:14)
[2021-12-05] MEDS: FOLIC ACID 1 MG TABLET PO SCH (09:14)
[2021-12-05] MEDS: ARIPIPRAZOLE 5 MG TABLET PO SCH (09:14)
[2021-12-05] MEDS: ESCITALOPRAM OXALATE 10 MG TABLET PO SCH (09:14)
[2021-12-05] MEDS: CYCLOBENZAPRINE HCL 10 MG TABLET PO PRN (09:14)
[2021-12-05] MEDS: MULTIVITAMINS,THERAPEUTIC TABLET PO SCH (09:15)
[2021-12-05] MEDS: glipiZIDE XL 5 MG TABCR PO SCH (09:16)
[2021-12-05] MEDS: GLUCERNA SHAKE 237 ML CAN PO SCH (09:18)
[2021-12-05] MEDS: ESTRADIOL 1 MG TABLET PO SCH (09:19)
--- NOTE | 2021-12-05 15:35 | NUR ---
pt is discharge. pall belongings accounted for. pt will go home with familily. 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
== END 2021-12-05 15:45 | disposition home health service (06) | DRG 561 ==
PROVIDERS: ADMIT Physical Medicine & Rehabilitation Pain Medicine; ATTEND Physical Medicine & Rehabilitation Pain Medicine
DX: Z47.89 Encounter for other orthopedic aftercare (principal); M54.16 Radiculopathy, lumbar region; M54.17 Radiculopathy, lumbosacral region; D63.8 Anemia in other chronic diseases classified elsewhere; E11.9 Type 2 diabetes mellitus without complications; E88.09 Other disorders of plasma-protein metabolism, not elsewhere classified; I10 Essential (primary) hypertension; Z98.1 Arthrodesis status; R79.89 Other specified abnormal findings of blood chemistry; Z96.653 Presence of artificial knee joint, bilateral; D50.9 Iron deficiency anemia, unspecified; F32.A Depression, unspecified; E66.9 Obesity, unspecified; K29.70 Gastritis, unspecified, without bleeding; G89.29 Other chronic pain; M06.9 Rheumatoid arthritis, unspecified; G47.00 Insomnia, unspecified; M62.838 Other muscle spasm
CPT/HCPCS: 36415; 85025; 87086; 97535-GO-CO; A4663; J1815; J8499; J8610